=== PATIENT | female | born 1975 | race Caucasian/White ===

== ENCOUNTER 2019-07-23 15:49 | Emergency (ER) | payer OTHER, SELFPAY ==
[2019-07-23 15:52] VITALS: BP 126/85; PULSE 57; RESP 16; TEMP 36.8; O2SAT 100; BMI 24.7
[2019-07-23 16:04] VITALS: RESP 16
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
== END 2019-07-23 16:50 | disposition home or self-care (01) ==
PROVIDERS: Emergency Provider Family Medicine; Family Provider Family Medicine; PCP Family Medicine
DX: S06.0X0A Concussion without loss of consciousness, initial encounter (principal); M54.2 Cervicalgia; Y04.2XXA Assault by strike against or bumped into by another person, initial encounter; Y92.239 Unspecified place in hospital as the place of occurrence of the external cause
CPT/HCPCS: 12345; 72040; 99281; 99282

== ENCOUNTER → 2019-12-06 09:48 | Outpatient (BNVA) | payer OTHER, SELFPAY | PROVIDERS: Family Provider Family Medicine; PCP Family Medicine; Referring Provider Dermatology; Visit Provider Dermatology | DX: Z12.83 Encounter for screening for malignant neoplasm of skin (principal); L81.4 Other melanin hyperpigmentation; D23.9 Other benign neoplasm of skin, unspecified; D22.9 Melanocytic nevi, unspecified; L81.8 Other specified disorders of pigmentation; L20.9 Atopic dermatitis, unspecified; W89.1XXA Exposure to tanning bed, initial encounter; X58.XXXA Exposure to other specified factors, initial encounter | CPT/HCPCS: 99203; 99204 ==

== ENCOUNTER → 2020-04-02 13:55 | Outpatient (BNVA) | payer OTHER, SELFPAY | PROVIDERS: Family Provider Family Medicine; PCP Family Medicine; Visit Provider Obstetrics & Gynecology | DX: Z20.2 Contact with and (suspected) exposure to infections with a predominantly sexual mode of transmission (principal) | CPT/HCPCS: 87491; 87591; 87661 ==

== ENCOUNTER 2021-06-19 15:21 | Outpatient (CLI) | payer OTHER, SELFPAY ==
[2021-06-19 17:33] LABS: Adenovirus Not Detected (NOT DETECT); Chlamydia Pneumoniae Not Detected (NOT DETECT); Coronavirus 229E,HKU1,NL63,OC4 Detected (NOT DETECT); Human Metapneumovirus Not Detected (NOT DETECT); Human Rhinovirus/Enterovirus Not Detected (NOT DETECT); Influenza A Not Detected (NOT DETECT); Influenza A H1 Not Detected (NOT DETECT); Influenza A H1-2009 Not Detected (NOT DETECT); Influenza A H3 Not Detected (NOT DETECT); Influenza B Not Detected (NOT DETECT); Mycoplasma Pneumoniae Not Detected (NOT DETECT); Parainfluenza Virus Type 1 Not Detected (NOT DETECT); Parainfluenza Virus Type 2 Not Detected (NOT DETECT); Parainfluenza Virus Type 3 Not Detected (NOT DETECT); Parainfluenza Virus Type 4 Not Detected (NOT DETECT); Respiratory Syncytial Virus A Not Detected (NOT DETECT); Respiratory Syncytial Virus B Not Detected (NOT DETECT); SARS-COV-2 Not Detected (NOT DETECT)
== END 2021-06-19 15:22 | disposition home or self-care (01) ==
LOC: ONCMED 15:24
PROVIDERS: PCP Family Medicine; Visit Provider Student in an Organized Health Care Education/Training Program
DX: R06.02 Shortness of breath (principal)
CPT/HCPCS: 87635

== ENCOUNTER 2021-11-20 08:33 | Outpatient (CLI) | payer BC, SELFPAY ==
--- NOTE | 2021-11-20 08:38 | MM_ITS ---
WS: [id number] BILATERAL SCREENING DIGITAL BREAST MAMMOGRAPHY WITH GONZALEZ DISPLACEMENT VIEWS. CAD PERFORMED. HISTORY: SCREENING COMPARISON: None available. 12/03/2017 Bilateral craniocaudal and mediolateral oblique views are performed with tomosynthesis and SM. Gonzalez displacement views in CC and MLO projection also performed. Breasts composition: The breasts are extremely dense, which lowers the sensitivity of mammography. No suspicious mass or calcification. Implants are retropectoral and intact. MM/[place] [id number] IMPRESSION: BI-RADS: 2-Benign FOLLOW-UP: 1 Year Follow-up
== END 2021-11-20 08:34 | disposition home or self-care (01) ==
LOC: RAD 08:34
PROVIDERS: PCP Family Medicine; Visit Provider Family Medicine
DX: Z12.31 Encounter for screening mammogram for malignant neoplasm of breast (principal)
CPT/HCPCS: 77063; 77067

== ENCOUNTER → 2022-03-07 12:13 | Outpatient (BNVA) | payer BC, SELFPAY | PROVIDERS: PCP Family Medicine; Visit Provider Registered Nurse Neonatal Intensive Care | DX: R05.9 Cough, unspecified (principal) | CPT/HCPCS: 87070; 87880 ==

== ENCOUNTER → 2022-09-07 09:46 | Outpatient (BNVA) | payer BC, SELFPAY | PROVIDERS: PCP Family Medicine; Visit Provider Family Medicine | DX: Z00.00 Encounter for general adult medical examination without abnormal findings (principal); Z68.25 Body mass index [BMI] 25.0-25.9, adult | CPT/HCPCS: 80053; 80061; 82306; 84443; 85025 ==

== ENCOUNTER 2023-03-09 08:06 | Outpatient (CLI) | payer BC, SELFPAY ==
--- NOTE | 2023-03-09 08:31 | MM_ITS ---
WS: [id number] VIEWS: MLO and CC views both breasts. Breast implant displacement MLO and cc views of both breasts a lso included. 3D digital tomosynthesis is also performed with this exam. Comparison made with prior exam of 03/05/2016, 12/03/2017, 11/20/2021.. Findings: There was no sign of mass, architectural distortion or suspicious calcification in either breast. Int act bilateral breast implants. There are scattered areas of fibroglandular density Impression: MM/[place] [id number] BI-RADS: 1-Negative FOLLOW-UP: 1 Year Follow-up This mammogram was also analyzed by the Computer Aided Detection System R2 Imag e Building Inspection Engineer.
== END 2023-03-09 08:07 | disposition home or self-care (01) ==
PROVIDERS: PCP Family Medicine; Visit Provider Family Medicine
DX: Z12.31 Encounter for screening mammogram for malignant neoplasm of breast (principal)
CPT/HCPCS: 77063; 77067

== ENCOUNTER 2023-05-18 16:41 | Outpatient (CLI) | payer BC, SELFPAY ==
[2023-05-18 17:54] LABS: Anion Gap 14.5 (5-19); Blood Urea Nitrogen 13 mg/dL (6-20); Calcium 9.3 mg/dL (8.5-10.5); Carbon Dioxide 26 mmol/L (22-29); Chloride 99 mmol/L (98-107); Glomerular Filtration Rate 67.1 mL/min (90-130); Glucose 84 mg/dL (65-115); Osmolality Calculated 279 mOsm/kg (285-295); Potassium 4.5 mmol/L (3.5-5.1); Sodium 135 mmol/L (136-145)
== END 2023-05-18 16:42 | disposition home or self-care (01) ==
LOC: LAB 16:44
PROVIDERS: PCP Family Medicine; Visit Provider Family Medicine
DX: E87.1 Hypo-osmolality and hyponatremia (principal); N28.9 Disorder of kidney and ureter, unspecified
CPT/HCPCS: 80048

== ENCOUNTER 2023-08-14 06:58 | Emergency (ER) | payer BC, SELFPAY ==
[2023-08-14 07:04] VITALS: BP 91/60; PULSE 72; RESP 16; TEMP 36.6; O2SAT 95
--- NOTE | 2023-08-14 07:05 | ED_ITS ---
HPI - Extremity Injury (Lower) 2 General: Chief Complaint: Syncope Stated Complaint: Right leg pain/ Passed out Time Seen by Provider: 08/14/23 07:01 Source: patient Mode of arrival: ambulatory History of Present Illness: 48-year-old female presents emergency ro om with complaints of right leg pain that she isolates to the proximal thigh laterally radiating down her thigh anteriorly. She had a syncopal episode associated with this morning she became weak and dizzy woke up diaphoretic. She had a syncopal episode at work a couple of months ago while was not evaluated at that time. Patient has mild renal insufficiency. She currently has a Mirena device in place does not take any other hormone replacements. She denies chest pain or shortness of breath she did not notice any swelling in her legs she has no history of DVT or PE. She is not on any anticoagulants denies any head trauma. She has had some intermittent low back issues no nerve root or cord compression issues in the past. She recently did run about 3 miles she had not been running much prior to that. No specific injuries or trauma that she can recall that seem to have triggered this Onset (ago): minute(s) Place: home Relieving factors: nothing Exacerbating factors: nothing Associated symptoms: Deny inability to bear weight, numbness, swelling or tingling Other symptoms: loss of consciousness and diaphoresis Review of Systems 2 Const: Denies: fever(s) or chills Card: Denies: chest pain Resp: Denies: dyspnea GI: Denies: abdominal pain : Denies: dysuria, urinary frequency or urinary urgency Musc: Denies: neck pain or back pain Skin/Breast: Denies: rash PFSH ED 2 PFSH: Surgical History History of breast augmentation 2019 Hx of tonsillectomy 14 years old Family History Father Diabetes Colon cancer Family/Other Colon cancer paternal great uncles Denies family history of Ovarian cancer Clotting disorder Heart disease Hyperlipidemia Breast cancer Anesthesia complication Bleeding disorder Hypertension Uterine cancer Thyroid disease Stroke Social History Smoking and tobacco/nicotine status: never used tobacco/nicotine Second hand smoke exposure: No Alcohol intake: current Alcohol intake frequency: holidays/special occasions only Alcohol type: beer Substance/Drug Use: never Female Reproductive History: Spontaneous abortions: No Physical Exam 2 Const: COMMON NORMALS: no acute distress GENERAL APPEARANCE: cooperative and comfortable ORIENTATION/CONSCIOUSNESS: Yes awake, Yes oriented to person, Yes oriented to place and Yes oriented to time HENMT: COMMON NORMALS: normocephalic, atraumatic and hearing grossly normal bilaterally HEAD & SCALP: normocephalic and atraumatic Resp: COMMON NORMALS: normal respiratory effort, No retractions, No use of accessory muscles and clear to auscultation bilaterally AUSCULTATION: clear to auscultation bilaterally Cardio: COMMON NORMALS: regular rate, regular rhythm and No murmurs present (Cardio) RATE: regular rate RHYTHM: regular rhythm GI: COMMON NORMALS: Soft to palpation and No hepatosplenomegaly present A USCULTATION: Yes normoactive bowel sounds PALPATION: Yes Soft to palpation, No Tenderness to palpation present (GI), No Guarding due to palpation present (GI) and Yes No hepatosplenomegaly present Extremity: COMMON NORMALS: normal to inspection, capillary refill normal, no clubbing, cyanosis or edema, no calf tenderness and no pedal edema Neuro: SENSORIUM/ORIENTATION: Yes oriented to person, Yes oriented to place and Yes oriented to time Skin: COMMON NORMALS: no rashes or lesions noted GENERAL SKIN EXAM: no rashes or lesions noted Course 2 Vital Signs: Vital signs: Vital Signs Temperature 97.8 F 08/14/23 07:04 Pulse Rate 67 08/14/23 08:27 Respiratory Rate 16 08/14/23 07:04 Blood Pressure 117/72 08/14/23 08:27 Pulse Oximetry 99 08/14/23 08:27 Oxygen Delivery Me thod Room Air 08/14/23 08:27 MDM - Extremity Injury (Lower) Medical Decision Making Labs and imaging reviewed. EKG showed normal sinus rhythm without any abnormalities. Labs generally unremarkable no clinically significant abnormalities of the thyroid. Venous duplex negative no sign of DVT she still not having any chest or abdominal pain. Given her description of her pain I suspect this is more of a lumbar radiculopathy. Give her shot of dexamethasone here and discharged home on steroid taper muscle relaxers do not give any anti- inflammatories because of her self-reported history of renal issues. Follow-up with primary care if not improving or persist Medical Records I reviewed the patient's medical records. Lab Data I reviewed the patient's lab results. 08/14/23 07:23 08/14/23 07:23 Radiology Impressions Venous Duplex 08/14/23 07:17 IMPRESSION: No evidence of deep vein thrombosis. Laboratory Results WBC 8.25 10^3/uL (3.29-11.43) 08/14/23 07: RBC 4.12 10^6/uL (3.85-5.65) 08/14/23 07:23 Hgb 12.70 g/dL (11.27-16.99) 08/14/23 07: Hct 39.5 % (36-47) 08/14/23 07: MCV 95.9 fl (85-98) 08/14/23 07: MCH 30.8 pg (27-33) 08/14/23 07: MCHC 32.2 g/dL (30-55) 08/14/23 07:23 RDW 12.7 % (12.1-15.1) 08/14/23 07:23 Plt Count 215 10^3/cmm (157-399) 08/14/23 07:23 MPV 9.2 fL (7.4-10.4) 08/14/23 07: Neut % (Auto) 73.0 % 08/14/23 07: Lymph % (Auto) 21.8 % 08/14/23 07:23 Morrill % (Auto) 3.6 % 08/14/23 07: Eos % (Auto) 1.0 % 08/14/23 07: Baso % (Auto) 0.4 % 08/14/23 07:23 Neut # (Auto) 6.02 10^3/uL (1.8-7.7) 08/14/23 07:23 Lymph # (Auto) 1.8 10^3/uL (0.8-4.8) 08/14/23 07:23 Morrill # (Auto) 0.3 10^3/uL (0.2-0.9) 08/14/23 07:23 Eos # (Auto) 0.1 10^3/uL (0.0-0.8) 08/14/23 07:23 Baso # (Auto) 0.0 10^3/uL (0.0-0.1) 08/14/23 07:23 Nucleated RBC % (auto) 0 % 08/14/23 07: Nucleated RBCs # 0.0 /100WBC 08/14/23 07:23 Sodium 136 mmol/L (136-145) 08/14/23 07:23 Potassium 4.5 mmol/L (3.5-5.1) 08/14/23 07:23 Chloride 103 mmol/L (98-107) 08/14/23 07:23 Carbon Dioxide 24 mmol/L (22-29) 08/14/23 07:23 Anion Gap 13.5 (5-19) 08/14/23 07:23 BUN 23 mg/dL (6-20) H 08/14/23 07:23 Creatinine 1.0 mg/dL (0.5-0.9) H 08/14/23 07:23 GFR Calculation 59.4 mL/min (90-130) L 08/14/23 07:23 Glucose 96 mg/dL (65-115) 08/14/23 07:23 Calculated Osmolality 286 mOsm/kg (285-295) 08/14/23 07:23 Calcium 9.5 mg/dL (8.5-10.5) 08/14/23 07:23 Magnesium 1.9 mg/dL (1.7-2.3) 08/14/23 07:23 Total Bilirubin 0.6 mg/dL (0.15-1.2) 08/14/23 07:23 AST 24 U/L (0-32) 08/14/23 07:23 ALT 27 U/L (0-33) 08/14/23 07:23 Alkaline Phosphatase 41 U/L (35-105) 08/14/23 07:23 Total Protein 6.8 g/dL (6.6-8.7) 08/14/23 07:23 Albumin 4.2 g/dL (3.5-5.2) 08/14/23 07:23 Globulin 2.6 g/dL (1.3-4.6) 08/14/23 07:23 Urine Color Straw (Yellow) 08/14/23 08:21 Urine Appearance Clear (CLEAR) 08/14/23 08:21 Urine pH 5 (5-7) 08/14/23 08:21 Ur Specific Monument 1.015 (1.005-1.030) 08/14/23 08:21 Urine Protein Neg (Negative) 08/14/23 08:21 Urine Glucose (UA) Norm (Normal) 08/14/23 08:21 Urine Ketones Negative (Negative) 08/14/23 08:21 Urine Blood 2+ (Negative) H 08/14/23 08:21 Urine Nitrate Negative (Negative) 08/14/23 08:21 Urine Bilirubin Neg (Negative) 08/14/23 08:21 Urine Urobilinogen Norm mg/dL (Negative) 08/14/23 08:21 Ur Leukocyte Esterase Negative (Negative) 08/14/23 08:21 Urine RBC Rare /hpf (0-2) 08/14/23 08:21 Urine WBC 0-4 /hpf (0-5) H 08/14/23 08:21 Ur Squamous Epith Cells Rare /hpf (0-5) 08/14/23 08:21 Amorphous Sediment Not Reportable 08/14/23 08:21 Urine Bacteria Trace /hpf (NONE) 08/14/23 08:21 All radiology interpretation(s) finalized by discharge Discharge Plan Discharge Patient Disposition: Home Clinical Impression: Lumbar radiculopathy, right Condition: Stable Prescriptions: New tizanidine 4 mg tablet 4 mg PO Q6H PRN (Reason: muscle spasticity) Qty: 20 0RF Rx Instructions: do not exceed 3 doses per 24 hrs prednisone 20 mg tablet 20 mg PO TID Qty: 15 0RF Rx Instructions: 1 p.o. 3 times daily x3 days, 1 p.o. twice daily x2 days, 1 p.o. daily x2 days No Action cetirizine [Zyrtec] 10 mg tablet 10 mg PO DAILY Mirena 20 mcg/24 hours (5 yrs) 52 mg intrauterine device 1 device intrauterine DIRECTED valacyclovir 1 gram tablet 1,000 mg PO DAILY Qty: 90 1RF tretinoin 0.025 % cream 1 applic topical Q7D Qty: 45 2RF multivitamin Tablet 1 tab PO QAM Hyaluronic Acid (sodium) 20 mg Capsule 40 mg PO QAM Collagen Plus Vitamin C 125-740 mg Capsule 2 cap PO QAM Discharge Orders: Discharge ED (Routine); Ordered 08/14/23 Ordered By: Trent Martin Referrals: Agus Browning, DO [Primary Care Provider] - Discharge Diet: Usual diet Discharge Activity: Increase activity as tolerated Patient Instructions: Opioid Safety, Pain Management Activity Restrictions/Additional Instructions: Thank you for choosing [facility] for your healthcare needs today. Please realize this is an emergency room and that we are providing you with a medical screening exam and this may not be complete and all inclusive of all the testing and or work up that you may need to determine your ailment or severity of your illness. It is very important that you follow up as instructed or that you return to the Emergency Department should you have concerns or if your condition changes or worsens in any way. You were seen today for complaints of left hip pain radiating down your leg. Your labs are unremarkable EKG was negative. Ultrasound of the leg did not show any sign of DVT. Given your symptoms suspect this is a nerve root irritation causing radicular pain into your hip and leg. Discharged home with a steroid taper to begin tomorrow as well as muscle relaxers. If symptoms persist follow- up with your primary care doctor. 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
--- NOTE | 2023-08-14 07:15 | ECG_ITS ---
[facility] Test Date: 2023-08-14 Pat Name: Lydia Cooper Department: Room: Gender: Female Automation Qa Tester: : 1975 Requested By: Trent Bradford Order Number: [id number] Herbie MD: Bboo Aburto M.D. Measurements Intervals [place] Rate: 60 P: 73 MI: 158 QRS: 78 QRSD: 78 T: 80 QT: 400 QTc: 401 Interpretive Statements SINUS RHYTHM No previous ECG available for comparison Electronically Signed On 08-14-2023 9:19:01 CDT by Bobo Aburto M.D. [email or web address]
--- NOTE | 2023-08-14 07:17 | USR_ITS ---
PROCEDURE INFORMATION: Exam: US Duplex Right Lower Extremity Veins, Limited Exam date and time: 08/14/2023 8:00 AM Age: 48 years old Clinical indication: Pain; Leg, lower; Right; Additional info: Leg pain/syncope TECHNIQUE: Imaging protocol: Real-time duplex ultrasound of the right extremity with 2-D castañeda scale, color Doppler flow and spectral waveform analysis including responses to compression and other maneuvers (when performed) with image documentation. Limited exam was focused on the right lower extremity veins. Total images: 485 COMPARISON: No relevant prior studies available. FINDINGS: Right deep veins: Unremarkable. The common femoral, femoral, proximal profunda femoral and popliteal veins are patent without thrombus. Normal Doppler waveforms. Normal compressibility and/or augmentation response. Superficial veins: Greater saphenous vein at the saphenofemoral junction is patent without thrombus. Soft tissues: Unremarkable. US/[place] [id number] IMPRESSION: No evidence of deep vein thrombosis.
[2023-08-14 07:28] LABS: Basophils % 0.4 %; Eosinophils # 0.1 10^3/uL (0.0-0.8); Hematocrit 39.5 % (36-47); Lymphocytes # 1.8 10^3/uL (0.8-4.8); Lymphocytes % 21.8 %; Mean Corpuscular HGB Conc 32.2 g/dL (30-55); Mean Corpuscular Hemoglobin 30.8 pg (27-33); Mean Corpuscular Volume 95.9 fl (85-98); Mean Platelet Volume 9.2 fL (7.4-10.4); Monocytes # 0.3 10^3/uL (0.2-0.9); Monocytes % 3.6 %; Neutrophils # 6.02 10^3/uL (1.8-7.7); Nucleated Red Blood Cells % 0 %; Platelet Count 215 10^3/cmm (157-399); Red Blood Count 4.12 10^6/uL (3.85-5.65); Red Cell Distribution Width 12.7 % (12.1-15.1); White Blood Count 8.25 10^3/uL (3.29-11.43)
[2023-08-14 07:48] LABS: Albumin Level 4.2 g/dL (3.5-5.2); Alkaline Phosphatase 41 U/L (35-105); Anion Gap 13.5 (5-19); Aspartate Amino Transferase 24 U/L (0-32); Blood Urea Nitrogen 23 mg/dL (6-20); Calcium 9.5 mg/dL (8.5-10.5); Carbon Dioxide 24 mmol/L (22-29); Chloride 103 mmol/L (98-107); Globulin 2.6 g/dL (1.3-4.6); Glomerular Filtration Rate 59.4 mL/min (90-130); Glucose 96 mg/dL (65-115); Magnesium 1.9 mg/dL (1.7-2.3); Osmolality Calculated 286 mOsm/kg (285-295); Potassium 4.5 mmol/L (3.5-5.1); Sodium 136 mmol/L (136-145); Total Bilirubin 0.6 mg/dL (0.15-1.2); Total Protein 6.8 g/dL (6.6-8.7)
[2023-08-14 07:49] LABS: Creatinine Clr Calc Pharmacy 59.8957
[2023-08-14 07:59] LABS: Alanine Aminotransferase 27 U/L (0-33)
[2023-08-14 08:27] VITALS: BP 117/72; PULSE 67; O2SAT 99
[2023-08-14 08:38] LABS: Add Urine Culture? No; Add Urine Microscopic? YES; Bacteria Urine TRACE /hpf; Bilirubin Urine Neg (Negative); Blood Urine 2+ (Negative); Glucose Urine UA Norm (Normal); Ketones Urine Negative (Negative); Leukocyte Esterase Urine Negative (Negative); Nitrate Urine Negative (Negative); Protein Urine Neg (Negative); RBC Urine RARE /hpf (0-2); Specific Gravity, Urine 1.015 (1.005-1.030); Squamous Epithelial Cell Urine RARE /hpf (0-5); Urine Appearance Clear (CLEAR); Urine Color Straw (Yellow); Urobilinogen Urine Norm (Negative); WBC Urine 0-4 /hpf (0-5); pH Urine 5 (5-7)
[2023-08-14] MEDS: dexamethasone 10 mg/mL INJ IM (09:11)
== END 2023-08-14 09:24 | disposition home or self-care (01) ==
PROVIDERS: Emergency Provider Family Medicine; PCP Family Medicine
DX: M54.16 Radiculopathy, lumbar region (principal)
CPT/HCPCS: 36415; 80053; 81001; 83735; 85025; 93005; 93971; 96372; 99284; J1100

== ENCOUNTER → 2023-12-14 10:31 | Outpatient (BNVA) | payer BC, SELFPAY | PROVIDERS: PCP Family Medicine; Visit Provider Nurse Practitioner Family | DX: J34.89 Other specified disorders of nose and nasal sinuses (principal) | CPT/HCPCS: 87400; 87426 ==

== ENCOUNTER → 2025-01-07 18:46 | Outpatient (BNVA) | payer BC, SELFPAY | PROVIDERS: PCP Family Medicine; Visit Provider Emergency Medicine | DX: R39.9 Unspecified symptoms and signs involving the genitourinary system (principal) | CPT/HCPCS: 81000; 81513; 87086; 87481; 87491; 87591; 87661 ==

== ENCOUNTER 2025-01-18 14:24 | Outpatient (CLI) | payer BC, SELFPAY ==
[2025-01-18 15:52] LABS: Alanine Aminotransferase 21 U/L (0-33); Albumin Level 4.2 g/dL (3.5-5.2); Alkaline Phosphatase 44 U/L (35-105); Anion Gap 13.6 (5-19); Aspartate Amino Transferase 19 U/L (0-32); Blood Urea Nitrogen 14 mg/dL (6-20); Calcium 8.9 mg/dL (8.5-10.5); Carbon Dioxide 25 mmol/L (22-29); Chloride 98 mmol/L (98-107); Globulin 2.9 g/dL (1.3-4.6); Glucose 80 mg/dL (65-115); Osmolality Calculated 275 mOsm/kg (285-295); Potassium 3.6 mmol/L (3.5-5.1); Sodium 133 mmol/L (136-145); Total Protein 7.1 g/dL (6.6-8.7)
== END 2025-01-18 14:25 | disposition home or self-care (01) ==
PROVIDERS: PCP Family Medicine; Visit Provider Family Medicine
DX: Z00.00 Encounter for general adult medical examination without abnormal findings (principal); N28.9 Disorder of kidney and ureter, unspecified; Z12.11 Encounter for screening for malignant neoplasm of colon
CPT/HCPCS: 36415; 80053